=== PATIENT | male | born 1965 | race Caucasian/White ===

== ENCOUNTER 2021-07-12 05:27 | Day surgery (SDC) | payer MEDICARE, OTHER ==
[2021-07-07 10:27] LABS: BASOPHILS % (AUTO) 0.2 % (0.0-2.0); EOSINOPHILS % (AUTO) 0.5 % (0.0-4.0); HEMATOCRIT 49.7 % (36-52); HEMOGLOBIN 16.7 g/dL (12.0-18.0); LYMPHOCYTES # (AUTO) 1.5 K/uL (2.0-11.5); LYMPHOCYTES % (AUTO) 18.9 % (20.5-51.1); MEAN CORPUSCULAR HEMOGLOBIN 31 pg (27-31); MEAN CORPUSCULAR HGB CONC 34 g/dL (33-37); MEAN CORPUSCULAR VOLUME 91.2 fL (80-94); MONOCYTES # (AUTO) 0.7 K/uL (0.8-1.0); MONOCYTES % (AUTO) 8.7 % (1.7-9.3); NEUTROPHILS # (AUTO) 5.6 K/uL (1.8-7.7); NEUTROPHILS % (AUTO) 71.7 % (42.2-75.2); PLATELET COUNT (AUTO) 276 K/uL (140-450); RED BLOOD CELL COUNT(AUTO) 5.45 MIL/uL (4.20-6.10); WHITE BLOOD COUNT (AUTO) 7.8 K/uL (4.8-10.8)
[2021-07-07 10:46] LABS: PROTHROMBIN TIME 10.5 secs (10.8-13.4)
[2021-07-07 10:48] LABS: ALBUMIN 3.8 g/dL (3.4-5.0); ANION GAP 12.2 (8-16); CARBON DIOXIDE 26.5 mmol/L (21-32); CREATININE 0.8 mg/dL (0.6-1.3); POTASSIUM 3.7 mmol/L (3.5-5.1); TOTAL BILIRUBIN 0.6 mg/dL (0.0-1.0)
[~2021-07-12] VITALS: Ht 165.1 cm; Wt 73.5 kg
[2021-07-12] MEDS ORDERED: BUPIVACAINE-MPF/EPI 0.5% 30 ML VIAL INJ ONE (07:53)
[2021-07-12] MEDS ORDERED: fentaNYL citrate 0.05 MG/ML VIAL ONE (08:06)
[2021-07-12] MEDS ORDERED: PROPOFOL 200 MG/20 ML VIAL IV ONE ×2 (08:14)
[2021-07-12] MEDS ORDERED: LABETALOL 20 MG/4 ML VIAL IVP PRN (08:55)
[2021-07-12] MEDS ORDERED: hydrALAZINE 20 MG/ML VIAL IVP PRN (08:55)
[2021-07-12] MEDS ORDERED: LACTATED RINGERS 1,000 ML IV SCH (08:55)
[2021-07-12] MEDS ORDERED: HYDROmorphone 1 MG/ML AMP IVP PRN (08:55)
[2021-07-12] MEDS ORDERED: METOCLOPRAMIDE 10 MG/2 ML INJ VIAL IVP PRN (08:55)
[2021-07-12] MEDS ORDERED: diphenhydrAMINE 50 MG/ML VIAL IVP PRN (08:55)
== END 2021-07-12 10:10 | disposition home or self-care (01) ==
LOC: MDS 05:27 → MMU 05:28 → MDS 10:10
PROVIDERS: ATTEND Podiatrist Foot & Ankle Surgery
DX: M20.42 Other hammer toe(s) (acquired), left foot (principal); M19.90 Unspecified osteoarthritis, unspecified site; E78.00 Pure hypercholesterolemia, unspecified; Z20.822 Contact with and (suspected) exposure to COVID-19; Z79.01 Long term (current) use of anticoagulants; Z79.899 Other long term (current) drug therapy
CPT/HCPCS: 28043; 28292; 36415; 71045; 80053; 85025; 85610; 85730; 87426; 88305; C1713; J0690; J2704; J3010; J3490; J7060